=== PATIENT | male | born 1995 | race Caucasian/White ===

== ENCOUNTER 2023-03-06 17:02 | Emergency (ER) | payer OTHER, SELFPAY ==
[2023-03-06 17:10] VITALS: BP 134/62; PULSE 62; RESP 16; TEMP 36.9; O2SAT 99; BMI 26.6
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
[2023-03-06] MEDS: LIDOCAINE 1% (PF) 5 ML INJ (18:24)
== END 2023-03-06 18:31 | disposition home or self-care (01) ==
PROVIDERS: Emergency Provider Student in an Organized Health Care Education/Training Program
DX: S81.812A Laceration without foreign body, left lower leg, initial encounter (principal); V19.9XXA Pedal cyclist (driver) (passenger) injured in unspecified traffic accident, initial encounter
CPT/HCPCS: 12002; 99283